=== PATIENT | female | born 1945 | race Caucasian/White ===

== ENCOUNTER 2017-04-24 19:10 | Emergency (ER) | payer OTHER ==
[~2017-04-24] VITALS: Ht 170.2 cm; Wt 71.1 kg
[2017-04-24] MEDS ORDERED: KEFLEX500 MG PO (22:37)
[2017-04-24] MEDS ORDERED: ZOFRAN4 MG PO (22:49)
[2017-04-24] MEDS ORDERED: PERCOCET 5/31 TABLET PO (22:49)
[2017-04-24 23:20] VITALS: BP 133/79
== END 2017-04-24 23:20 | disposition home or self-care (01) ==
LOC: EME → EDBD 19:10 → EME 23:20
DX: S01.81XA Laceration without foreign body of other part of head, initial encounter (principal); S02.2XXA Fracture of nasal bones, initial encounter for closed fracture; Z23 Encounter for immunization; W01.198A Fall on same level from slipping, tripping and stumbling with subsequent striking against other object, initial encounter; Z88.0 Allergy status to penicillin; Z88.2 Allergy status to sulfonamides
CPT/HCPCS: 70450; 99281; 99284; J3010

== ENCOUNTER 2017-09-30 06:19 | Emergency (ER) | payer OTHER ==
[~2017-09-30] VITALS: Ht 167.6 cm; Wt 72.6 kg
[~2017-09-30 06:19] MED LIST: KEFLEX500 MG PO; PERCOCET 5/31 TABLET PO; ZOFRAN4 MG PO
[2017-09-30 07:31] LABS: ADD MIUA? YES; BILIRUBIN NEGATIVE; BLOOD NEGATIVE; COLOR YELLOW ((YELLOW)); GLUCOSE (STRIP) NEGATIVE; KETONES NEGATIVE; LEUKOCYTES LARGE; NITRITE NEGATIVE; PROTEIN (STRIP) NEGATIVE; SPECIFIC GRAVITY 1.026 (1.000-1.030); UROBILINOGEN 0.2 MG/DL (0.2-1.0)
[2017-09-30 07:35] LABS: HEMATOCRIT 39.9 % (36.0-46.0); MCH 31.6 PG (29.0-34.0); MCHC 34.1 G/DL (30.0-36.0); MCV 92.6 FL (83-99); MEAN PLAT.VOLUME 10.9 uM^3 (9.5-12.4); PLATELET COUNT 179 K/uL (156-360); RBC DIS.WIDTH-CV 12.1 % (11.8-14.6); RBC DIS.WIDTH-SD 41.2 % (39-53); RED BLOOD COUNT 4.31 M/uL (3.80-5.20); WHITE BLOOD COUNT 6.1 K/uL (4.1-10.2)
[2017-09-30 07:48] LABS: BACTERIA NONE SEEN /HPF; CALCIUM OXALATE CRYSTALS 1+ /HPF; EPITHELIAL CELLS RARE /HPF; HYALINE CASTS 0-5 /LPF; MUCUS 1+ /LPF; UCUL ADDED? YES; WHITE BLOOD CELLS 15-20 /HPF (0-5)
[2017-09-30 08:17] LABS: ALKALINE PHOSPHATASE 85 IU/L (3-129); ANION GAP 8 MEQ/L (2-14); CHLORIDE 108 MEQ/L (99-109); GFR ESTIMATE (CALCULATED) > 59 mL/min/; GLUCOSE 102 mg/dL (70-99); POTASSIUM 4.2 MEQ/L (3.7-5.4); SAMPLE HEMOLYSIS CHECK 0; SAMPLE ICTERIC CHECK 0; SAMPLE LIPEMIA CHECK 0; SODIUM 142 MEQ/L (136-147); TOTAL BILIRUBIN 0.5 MG/DL (0.0-1.0); UREA NITROGEN (BUN) 26 mg/dL (9-23)
[2017-09-30] MEDS ORDERED: NORCO 10/3251 TABLET PO (09:47)
[2017-09-30] MEDS ORDERED: NAPROSYN500 MG PO (09:47)
[2017-09-30 10:09] VITALS: BP 120/77
== END 2017-09-30 10:10 | disposition home or self-care (01) ==
LOC: EME 06:19
DX: M51.36 Other intervertebral disc degeneration, lumbar region (principal); M51.37 Other intervertebral disc degeneration, lumbosacral region; M70.71 Other bursitis of hip, right hip; N39.0 Urinary tract infection, site not specified; E11.9 Type 2 diabetes mellitus without complications; E78.5 Hyperlipidemia, unspecified; I10 Essential (primary) hypertension; F32.9 Major depressive disorder, single episode, unspecified; Z86.718 Personal history of other venous thrombosis and embolism; Z88.0 Allergy status to penicillin
CPT/HCPCS: 72100; 73502; 80053; 81003; 83605; 83690; 85027; 87086; 99281; 99284; J1885

== ENCOUNTER 2018-04-17 19:11 | Emergency (ER) | payer OTHER ==
[~2018-04-17] VITALS: Ht 170.2 cm; Wt 70.1 kg
[~2018-04-17 19:11] MED LIST changes: +NAPROSYN500 MG PO; +NORCO 10/3251 TABLET PO
[2018-04-17 19:43] LABS: BASOPHIL (%) 0.5 % (0-1); EOSINOPHIL (%) 1.1 % (0-5); EOSINOPHIL COUNT 0.1 K/uL (0-0.3); HEMATOCRIT 40.9 % (36.0-46.0); HEMOGLOBIN 13.8 G/DL (11.9-15.5); IMMATURE GRANULOCYTE (%) 0.3 % (0.0-0.7); LYMPHOCYTE COUNT 2.5 K/uL (1.0-2.8); MCH 31.4 PG (29.0-34.0); MCHC 33.7 G/DL (30.0-36.0); MCV 93.2 FL (83-99); MONOCYTE (%) 9.6 % (3-12); MONOCYTE COUNT 0.6 K/uL (0-0.8); NEUTROPHIL (%) 51.5 % (45-76); NEUTROPHIL COUNT 3.4 K/uL (1.8-6.4); PLATELET COUNT 181 K/uL (156-360); RBC DIS.WIDTH-CV 12.6 % (11.8-14.6); RBC DIS.WIDTH-SD 43.2 % (39-53); RED BLOOD COUNT 4.39 M/uL (3.80-5.20); WHITE BLOOD COUNT 6.6 K/uL (4.1-10.2)
[2018-04-17 19:48] LABS: INTER. NORMALIZED RATIO 0.9
[2018-04-17 19:50] LABS: PTT 26.4 SEC (25-37)
[2018-04-17 19:52] LABS: CHLORIDE 108 mEq/L (99-109); POTASSIUM 3.8 mEq/L (3.7-5.4); SODIUM 144 mEq/L (136-147)
[2018-04-17 19:53] LABS: MAGNESIUM 1.7 mg/dL (1.3-2.7)
[2018-04-17 19:54] LABS: GLUCOSE 112 mg/dL (70-99)
[2018-04-17 19:57] LABS: CREATININE 0.8 mg/dL (0.6-1.3); GFR ESTIMATE (CALCULATED) > 59 mL/min/
[2018-04-17 19:58] LABS: UREA NITROGEN (BUN) 21 mg/dL (9-23)
[2018-04-17 20:27] LABS: C-REACTIVE PROTEIN 2.1 MG/L (0-10)
[2018-04-17 20:30] LABS: ERTH.SED.RATE 14 MM/HR (0-30)
[2018-04-17 21:47] VITALS: BP 92/61
== END 2018-04-17 21:51 | disposition home or self-care (01) ==
LOC: EME 19:11
PROVIDERS: Emergency Medicine
DX: R51 Headache (principal); I10 Essential (primary) hypertension; E11.40 Type 2 diabetes mellitus with diabetic neuropathy, unspecified; E78.5 Hyperlipidemia, unspecified; Z86.718 Personal history of other venous thrombosis and embolism; F32.9 Major depressive disorder, single episode, unspecified; Z88.0 Allergy status to penicillin
CPT/HCPCS: 70450; 80048; 83735; 85025; 85610; 85651; 85730; 86140; 99281; 99284

== ENCOUNTER 2018-06-01 07:40 | Emergency (ER) | payer OTHER ==
[~2018-06-01] VITALS: Ht 170.2 cm; Wt 69.4 kg
[2018-06-01 08:41] LABS: BASOPHIL (%) 0.4 % (0-1); EOSINOPHIL (%) 0.4 % (0-5); HEMATOCRIT 43.8 % (36.0-46.0); HEMOGLOBIN 15.1 G/DL (11.9-15.5); IMMATURE GRANULOCYTE (%) 0.4 % (0.0-0.7); LYMPHOCYTE (%) 19.5 % (15-42); LYMPHOCYTE COUNT 1.9 K/uL (1.0-2.8); MCH 31.6 PG (29.0-34.0); MCHC 34.5 G/DL (30.0-36.0); MCV 91.6 FL (83-99); MONOCYTE (%) 6.8 % (3-12); MONOCYTE COUNT 0.7 K/uL (0-0.8); NEUTROPHIL (%) 72.5 % (45-76); NEUTROPHIL COUNT 6.9 K/uL (1.8-6.4); PLATELET COUNT 168 K/uL (156-360); RBC DIS.WIDTH-CV 12.7 % (11.8-14.6); RBC DIS.WIDTH-SD 42.6 % (39-53); RED BLOOD COUNT 4.78 M/uL (3.80-5.20); WHITE BLOOD COUNT 9.6 K/uL (4.1-10.2)
[2018-06-01 09:02] LABS: ALBUMIN 4.7 G/DL (3.2-4.8); CHLORIDE 104 MEQ/L (99-109); POTASSIUM 3.9 MEQ/L (3.7-5.4); SODIUM 140 MEQ/L (136-147); TOTAL BILIRUBIN 0.6 MG/DL (0.0-1.0)
[2018-06-01 09:08] LABS: ALKALINE PHOSPHATASE 93 IU/L (3-129); ALT (GPT) 26 IU/L (3-49); AST (GOT) 27 IU/L (2-34); CREATININE 0.7 MG/DL (0.6-1.3); GFR ESTIMATE (CALCULATED) > 59 mL/min/; GLUCOSE 143 mg/dL (70-99); LIPASE 26 U/L (1.0-51.0); UREA NITROGEN (BUN) 27 mg/dL (9-23)
[2018-06-01 10:52] LABS: APPEARANCE CLEAR ((CLEAR)); BILIRUBIN NEGATIVE; BLOOD LARGE; COLOR YELLOW ((YELLOW)); GLUCOSE (STRIP) NEGATIVE; KETONES NEGATIVE; LEUKOCYTES NEGATIVE; NITRITE NEGATIVE; PROTEIN (STRIP) NEGATIVE; SPECIFIC GRAVITY 1.049 (1.000-1.030); UROBILINOGEN 0.2 MG/DL (0.2-1.0)
[2018-06-01 10:54] LABS: BACTERIA NONE SEEN /HPF; EPITHELIAL CELLS NONE SEEN /HPF; MUCUS TRACE /LPF; WHITE BLOOD CELLS 0-5 /HPF (0-5)
[2018-06-01 11:16] LABS: TROP-I INTERPRETATION NEGATIVE; TROPONIN-I < 0.01 ng/mL (0.0-0.30)
[2018-06-01] MEDS ORDERED: PERCOCET 5/31 TABLET PO (11:53)
[2018-06-01] MEDS ORDERED: FLOMAX0.4 MG PO (11:53)
[2018-06-01] MEDS ORDERED: ZOFRAN4 MG PO (11:53)
[2018-06-01 12:12] VITALS: BP 92/70
[2018-06-02] MEDS ORDERED: OXYCODONE-ACET1 EACH PO (14:21)
[2018-06-02] MEDS ORDERED: KEFLEX500 MG PO (14:22)
[2018-06-02] MEDS ORDERED: FLOMAX0.4 MG PO (14:22)
[2018-06-02] MEDS ORDERED: ZOFRAN4 MG PO (14:22)
[2018-06-02] MEDS ORDERED: NAPROSYN500 MG PO (14:23)
[2018-06-02] MEDS ORDERED: HYDROCODON-ACE1 EAC9 PO (14:23)
[2018-06-02] MEDS ORDERED: RESTASIS MULTI5.5 ML BOTH EYES (14:24)
[2018-06-02] MEDS ORDERED: NEURONTIN300 MG PO (14:25)
[2018-06-02] MEDS ORDERED: REFRESH TEARS15 ML BOTH EYES (14:25)
[2018-06-02] MEDS ORDERED: FLAGYL500 MG PO (14:25)
[2018-06-02] MEDS ORDERED: ZOLOFT100 MG PO (14:26)
[2018-06-02] MEDS ORDERED: RANITIDINE HCL150 M1 PO (14:26)
[2018-06-02] MEDS ORDERED: PRILOSEC20 MG PO (14:26)
[2018-06-02] MEDS ORDERED: TIMOPTIC-0100 DROP/1 BOTH EYES (14:27)
[2018-06-02] MEDS ORDERED: OSTEO BI-FLEX1 EAC3 PO (14:28)
[2018-06-02] MEDS ORDERED: METFORMIN HCL500 MG PO (14:32)
== END 2018-06-01 12:36 | disposition home or self-care (01) ==
LOC: EME 07:40
PROVIDERS: Emergency Medicine
DX: N13.2 Hydronephrosis with renal and ureteral calculous obstruction (principal); Z90.49 Acquired absence of other specified parts of digestive tract; I10 Essential (primary) hypertension; E11.40 Type 2 diabetes mellitus with diabetic neuropathy, unspecified; E78.5 Hyperlipidemia, unspecified; F32.9 Major depressive disorder, single episode, unspecified; Z86.718 Personal history of other venous thrombosis and embolism; Z88.0 Allergy status to penicillin; Z87.891 Personal history of nicotine dependence
CPT/HCPCS: 71045; 74177; 80053; 81003; 83690; 84484; 85025; 93005; 99281; 99285; J1885; J2270; J2405; J7030

== ENCOUNTER 2018-06-21 11:13 | Emergency (ER) | payer OTHER ==
[~2018-06-21] VITALS: Ht 170.2 cm; Wt 68.2 kg
[~2018-06-21 11:13] MED LIST changes: +FLAGYL500 MG PO; +FLOMAX0.4 MG PO; +HYDROCODON-ACE1 EAC9 PO; +METFORMIN HCL500 MG PO; +NEURONTIN300 MG PO; +OSTEO BI-FLEX1 EAC3 PO; +OXYCODONE-ACET1 EACH PO; +PRILOSEC20 MG PO; +RANITIDINE HCL150 M1 PO; +REFRESH TEARS15 ML BOTH EYES; +RESTASIS MULTI5.5 ML BOTH EYES; +TIMOPTIC-0100 DROP/1 BOTH EYES; +ZOLOFT100 MG PO
[2018-06-21 12:19] LABS: BASOPHIL (%) 0.2 % (0-1); EOSINOPHIL (%) 0 % (0-5); HEMATOCRIT 37.2 % (36.0-46.0); HEMOGLOBIN 12.9 G/DL (11.9-15.5); IMMATURE GRANULOCYTE (%) 0.2 % (0.0-0.7); LYMPHOCYTE (%) 9.6 % (15-42); LYMPHOCYTE COUNT 0.8 K/uL (1.0-2.8); MCH 31.6 PG (29.0-34.0); MCHC 34.7 G/DL (30.0-36.0); MCV 91.2 FL (83-99); MONOCYTE (%) 14.2 % (3-12); MONOCYTE COUNT 1.2 K/uL (0-0.8); NEUTROPHIL (%) 75.8 % (45-76); NEUTROPHIL COUNT 6.4 K/uL (1.8-6.4); PLATELET COUNT 171 K/uL (156-360); RBC DIS.WIDTH-CV 12.1 % (11.8-14.6); RBC DIS.WIDTH-SD 40.4 % (39-53); RED BLOOD COUNT 4.08 M/uL (3.80-5.20); WHITE BLOOD COUNT 8.4 K/uL (4.1-10.2)
[2018-06-21 12:50] LABS: ALBUMIN 3.7 G/DL (3.2-4.8); CHLORIDE 101 MEQ/L (99-109); POTASSIUM 3.7 MEQ/L (3.7-5.4); SODIUM 135 MEQ/L (136-147); TOTAL BILIRUBIN 0.8 MG/DL (0.0-1.0)
[2018-06-21 12:55] LABS: ALKALINE PHOSPHATASE 71 IU/L (3-129); ALT (GPT) 13 IU/L (3-49); AST (GOT) 15 IU/L (2-34); CREATININE 0.6 MG/DL (0.6-1.3); GFR ESTIMATE (CALCULATED) > 59 mL/min/; GLUCOSE 131 mg/dL (70-99); LIPASE 12 U/L (1.0-51.0); TOTAL PROTEIN 6.4 G/DL (6.4-8.3); UREA NITROGEN (BUN) 16 mg/dL (9-23)
[2018-06-21 13:43] LABS: APPEARANCE SL.HAZY ((CLEAR)); BILIRUBIN NEGATIVE; BLOOD SMALL; COLOR YELLOW ((YELLOW)); GLUCOSE (STRIP) NEGATIVE; KETONES NEGATIVE; LEUKOCYTES LARGE; NITRITE POSITIVE; PROTEIN (STRIP) 100; SPECIFIC GRAVITY 1.017 (1.000-1.030); UROBILINOGEN 0.2 MG/DL (0.2-1.0)
[2018-06-21 14:04] LABS: CREATINE KINASE 12 IU/L (1-294); TOTAL CK 12 IU/L (1-294)
[2018-06-21 14:06] LABS: BACTERIA 2+ /HPF; EPITHELIAL CELLS RARE /HPF; MUCUS NONE SEEN /LPF; RED BLOOD CELLS 0-5 /HPF (0-5); UCUL ADDED? YES; WHITE BLOOD CELLS 30-40 /HPF (0-5)
[2018-06-21 14:44] LABS: CK-MB < 0.4 ng/mL (0.0-4.9)
[2018-06-21] MEDS ORDERED: KEFLEX500 MG PO (15:17)
[2018-06-21 15:41] VITALS: BP 96/61
== END 2018-06-21 15:59 | disposition home or self-care (01) ==
LOC: EME 11:13
PROVIDERS: Nurse Practitioner Family
DX: N39.0 Urinary tract infection, site not specified (principal); R53.81 Other malaise; Z91.81 History of falling; R53.1 Weakness; R05 Cough; R19.7 Diarrhea, unspecified; R41.0 Disorientation, unspecified; M54.2 Cervicalgia; M25.551 Pain in right hip; M25.552 Pain in left hip; R06.02 Shortness of breath; E11.9 Type 2 diabetes mellitus without complications; Z79.84 Long term (current) use of oral hypoglycemic drugs; Z88.0 Allergy status to penicillin; Z86.718 Personal history of other venous thrombosis and embolism; Z87.891 Personal history of nicotine dependence
CPT/HCPCS: 70450; 71046; 72125; 73522; 80053; 81003; 82550; 82553; 83605; 83690; 85025; 87040; 87077; 87086; 87186; 93005; 99281; 99285; G8978 GP CJ; G8979 GP CI; G8980 CJ; G8987 GO CJ; G8988 CI; G8989 CJ; J0696

== ENCOUNTER 2018-06-24 13:34 | Emergency (ER) | payer OTHER ==
[~2018-06-24] VITALS: Ht 170.2 cm; Wt 68.1 kg
[2018-06-24 14:58] LABS: BASOPHIL (%) 0.3 % (0-1); EOSINOPHIL (%) 0.1 % (0-5); HEMATOCRIT 34.8 % (36.0-46.0); HEMOGLOBIN 11.9 G/DL (11.9-15.5); IMMATURE GRANULOCYTE (%) 0.6 % (0.0-0.7); LYMPHOCYTE (%) 16.8 % (15-42); LYMPHOCYTE COUNT 1.3 K/uL (1.0-2.8); MCH 31.4 PG (29.0-34.0); MCHC 34.2 G/DL (30.0-36.0); MCV 91.8 FL (83-99); MONOCYTE (%) 12.9 % (3-12); NEUTROPHIL (%) 69.3 % (45-76); NEUTROPHIL COUNT 5.5 K/uL (1.8-6.4); PLATELET COUNT 210 K/uL (156-360); RBC DIS.WIDTH-SD 40.6 % (39-53); RED BLOOD COUNT 3.79 M/uL (3.80-5.20)
[2018-06-24 15:07] LABS: ALBUMIN 3.4 g/dL (3.2-4.8); CHLORIDE 104 mEq/L (99-109); POTASSIUM 3.3 mEq/L (3.7-5.4); SODIUM 138 mEq/L (136-147)
[2018-06-24 15:09] LABS: GLUCOSE 109 mg/dL (70-99)
[2018-06-24 15:10] LABS: TOTAL PROTEIN 6.3 g/dL (6.4-8.3)
[2018-06-24 15:11] LABS: TOTAL BILIRUBIN 0.7 mg/dL (0.0-1.0)
[2018-06-24 15:13] LABS: ALKALINE PHOSPHATASE 72 IU/L (3-129); CREATININE 0.7 mg/dL (0.6-1.3); GFR ESTIMATE (CALCULATED) > 59 mL/min/
[2018-06-24 15:14] LABS: UREA NITROGEN (BUN) 15 mg/dL (9-23)
[2018-06-24 15:15] LABS: AST (GOT) 21 IU/L (2-34); DIRECT BILIRUBIN 0.3 mg/dL (0.0-0.3)
[2018-06-24 15:16] LABS: ALT (GPT) 18 IU/L (3-49)
[2018-06-24 15:17] LABS: LIPASE 52 U/L (1.0-51.0)
[2018-06-24 17:59] LABS: APPEARANCE SL.HAZY ((CLEAR)); BILIRUBIN NEGATIVE; BLOOD NEGATIVE; COLOR AMBER ((YELLOW)); GLUCOSE (STRIP) NEGATIVE; KETONES NEGATIVE; LEUKOCYTES MODERATE; NITRITE NEGATIVE; PROTEIN (STRIP) 30; SPECIFIC GRAVITY 1.019 (1.000-1.030); UROBILINOGEN 0.2 MG/DL (0.2-1.0)
[2018-06-24 18:04] LABS: BACTERIA RARE /HPF; CALCIUM OXALATE CRYSTALS 2+ /HPF; EPITHELIAL CELLS RARE /HPF; MUCUS TRACE /LPF; RED BLOOD CELLS 0-5 /HPF (0-5); WHITE BLOOD CELLS 15-20 /HPF (0-5)
[2018-06-24 19:48] VITALS: BP 96/71
== END 2018-06-24 19:51 | disposition home or self-care (01) ==
LOC: EME 13:34
PROVIDERS: Physician Assistant
DX: N39.0 Urinary tract infection, site not specified (principal); N20.0 Calculus of kidney; E11.40 Type 2 diabetes mellitus with diabetic neuropathy, unspecified; Z86.718 Personal history of other venous thrombosis and embolism; Z79.84 Long term (current) use of oral hypoglycemic drugs; Z88.0 Allergy status to penicillin; Z88.2 Allergy status to sulfonamides; Z87.891 Personal history of nicotine dependence
CPT/HCPCS: 74176; 80048; 80076; 81003; 83690; 85025; 99281; 99284; J1885; J2405; J7030